=== PATIENT | male | born 1935 | race Two or more races ===

== ENCOUNTER 2018-02-26 12:26 | Inpatient (IN) | payer MEDICAID, OTHER ==
[~2018-02-26] VITALS: Ht 165.1 cm; Wt 65.8 kg
[2018-02-26 13:46] LABS: Basophils # (auto) 0 uL; Basophils % (auto) 0.4 % (0.0-2.0); Eosinophils # (auto) 0.3 uL; Eosinophils % (auto) 4.3 % (0.0-7.0); Hematocrit 40.3 % (41.0-53.0); Hemoglobin 13.3 g/dL (13.5-17.5); Lymphocytes # (auto) 0.7 uL; Lymphocytes % (auto) 9.6 % (10.0-50.0); Mean Corpuscular Hemoglobin 29.3 pg (28.0-32.0); Mean Corpuscular Volume 88.8 fL (80.0-100.0); Monocytes # (auto) 0.9 uL; Monocytes % (auto) 11.6 % (0.0-12.0); Neutrophils # (auto) 5.6 uL; Neutrophils % (auto) 74.1 % (37.0-80.0); Platelet Count (auto) 263 10^3/uL (140-450); Red Blood Cells 4.54 10^6/uL (4.5-5.90); Red Cell Distribution Width 16.4 % (11.8-14.3); White Blood Cell 7.5 10^3/uL (4.4-10.8)
[2018-02-26 14:06] LABS: Alanine Aminotransferase 17 U/L (16-61); Albumin 3.5 g/dL (3.4-5.0); Alkaline Phosphatase 87 U/L (45-117); Anion Gap 7 (5-15); Aspartate Aminotransferase 14 U/L (15-37); BUN/Creatinine Ratio 16.9; Bilirubin, Total 0.3 mg/dL (0.2-1.0); Blood Urea Nitrogen 15 mg/dL (7-18); Calcium 8.4 mg/dL (8.5-10.1); Carbon Dioxide 27 mmol/L (21-32); Chloride 102 mmol/L (98-107); GFR African American 105 mL/min; GFR Non-African American 87 mL/min; Glucose 120 mg/dL (74-106); Potassium 4.6 mmol/L (3.5-5.1); Sodium 136 mmol/L (136-145); Total Protein 8.3 g/dL (6.4-8.2)
[2018-02-26] MEDS ORDERED: ALBUTEROL SULF 2.5 MG/0.5ML(0.5%) NEB SOLN HHN ONE (14:15)
[2018-02-26] MEDS ORDERED: cefTRIAXone 1GM/10ml IVPUSH 10 ML IV ONE (14:15)
[2018-02-26] MEDS ORDERED: methylPREDNISolone SOD SUCC 125 MG/2 ML VL IV ONE (14:15)
[2018-02-26] MEDS ORDERED: IPRATROPIUM BROM 0.5 MG/2.5ML INH SOL HHN ONE (14:15)
[2018-02-26] MEDS ORDERED: ACETAMINOPHEN 500 MG TAB PO PRN (17:00)
[2018-02-26] MEDS ORDERED: ALBUTEROL SULF 2.5 MG/0.5ML(0.5%) NEB SOLN NEB PRN (17:00)
[2018-02-26] MEDS ORDERED: PROMETHAZINE HCL 25 MG/ML 1ML IV PRN (17:00)
[2018-02-26] MEDS ORDERED: TEMAZEPAM 15 MG CAP PO PRN (17:00)
[2018-02-26] MEDS ORDERED: NITROGLYCERIN 0.4 MG SL TAB SL PRN (17:00)
[2018-02-26] MEDS ORDERED: LORazepam 0.5 MG TAB PO PRN (17:00)
[2018-02-26] MEDS ORDERED: MORPHINE SULF INJ 2 MG/ML SYRINGE 1ML IV PRN ×2 (17:00)
[2018-02-26] MEDS ORDERED: LACTULOSE 20Gm/30ML SOLN PO PRN (17:00)
[2018-02-26] MEDS ORDERED: HYDROcodone-ACET 5/325MG TAB PO PRN (17:00)
[2018-02-26] MEDS: SODIUM CHLORIDE 0.9% 1,000 ML IV SCH (17:46)
[2018-02-26] MEDS ORDERED: methylPREDNISolone SOD SUCC 40 MG/ML VL IV SCH (18:00)
[2018-02-26 18:57] LABS: Urine Bacteria NONE SEEN /hpf (None Seen); Urine Blood TRACE /uL (Negative); Urine Specific Gravity 1.024 (1.001-1.035); Urine WBC 1 /hpf (0 - 3)
[2018-02-26] MEDS: ALBUTEROL SULF 2.5 MG/0.5ML(0.5%) NEB SOLN NEB SCH (18:57)
[2018-02-26] MEDS: IPRATROPIUM BROM 0.5 MG/2.5ML INH SOL NEB SCH (18:57)
[2018-02-26 19:00] VITALS: BP 148/70
[2018-02-26] MEDS ORDERED: IPRAAER6 IN (19:25)
[2018-02-26] MEDS ORDERED: THEO1CAP3 PO (19:25)
[2018-02-26] MEDS ORDERED: ALBUAER3 IN (19:25)
[2018-02-26] MEDS: DOXYCYCLINE 100MG/250ML 250 ML IV SCH (19:50)
[2018-02-26 20:28] VITALS: BP 148/70
[2018-02-26 22:00] VITALS: BP 133/78
[2018-02-26] MEDS: methylPREDNISolone SOD SUCC 40 MG/ML VL IV SCH (22:00)
[2018-02-27] MEDS: ALBUTEROL SULF 2.5 MG/0.5ML(0.5%) NEB SOLN NEB SCH ×5 (01:22→18:26)
[2018-02-27] MEDS: IPRATROPIUM BROM 0.5 MG/2.5ML INH SOL NEB SCH ×5 (01:22→18:26)
[2018-02-27] MEDS: DOXYCYCLINE 100MG/250ML 250 ML IV SCH ×2 (05:43→18:00)
[2018-02-27] MEDS: SODIUM CHLORIDE 0.9% 1,000 ML IV SCH ×2 (06:02→14:24)
[2018-02-27 08:14] VITALS: BP 114/68
[2018-02-27] MEDS: PANTOPRAZOLE 40 MG TAB PO SCH (11:33)
[2018-02-27] MEDS: methylPREDNISolone SOD SUCC 40 MG/ML VL IV SCH ×2 (11:33→21:32)
[2018-02-27] MEDS: ENOXAPARIN SOD 40 MG/0.4 ML SYRINGE SC SCH (11:33)
[2018-02-27 11:56] VITALS: BP 127/75
[2018-02-27 13:55] LABS: Cholesterol 145 mg/dL (< 200); HDL Cholesterol 66 mg/dL (40-59); LDL Cholesterol 70 mg/dL (< 100); Triglycerides 26 mg/dL (< 150)
[2018-02-27] MEDS ORDERED: IPRATROPIUM BROM 0.5 MG/2.5ML INH SOL NEB PRN (14:00)
[2018-02-27] MEDS ORDERED: guaiFENesin-DM 100/10mg/5ml SYR PO PRN (14:15)
[2018-02-27 16:46] VITALS: BP 121/71
[2018-02-27 21:49] VITALS: BP 133/76
[2018-02-28] MEDS: IPRATROPIUM BROM 0.5 MG/2.5ML INH SOL NEB SCH ×3 (00:26→18:16)
[2018-02-28] MEDS: ALBUTEROL SULF 2.5 MG/0.5ML(0.5%) NEB SOLN NEB SCH ×3 (00:26→18:16)
[2018-02-28] MEDS ORDERED: ACETYLCYSTEINE 10 %(100MG/ML) SOL 4ML NEB ONE (04:15)
[2018-02-28 04:54] VITALS: BP 133/83
[2018-02-28] MEDS: DOXYCYCLINE 100MG/250ML 250 ML IV SCH ×2 (05:35→17:08)
[2018-02-28 06:21] LABS: Basophils # (auto) 0 uL; Basophils % (auto) 0.1 % (0.0-2.0); Eosinophils # (auto) 0 uL; Hematocrit 38.5 % (41.0-53.0); Hemoglobin 12.7 g/dL (13.5-17.5); Lymphocytes # (auto) 0.5 uL; Lymphocytes % (auto) 3.6 % (10.0-50.0); Mean Corpuscular Hgb Conc. 32.9 g/dL (32.0-36.0); Mean Corpuscular Volume 88.2 fL (80.0-100.0); Monocytes # (auto) 0.4 uL; Monocytes % (auto) 3.5 % (0.0-12.0); Neutrophils % (auto) 92.8 % (37.0-80.0); Platelet Count (auto) 262 10^3/uL (140-450); Red Blood Cells 4.37 10^6/uL (4.5-5.90); Red Cell Distribution Width 16.1 % (11.8-14.3); White Blood Cell 12.9 10^3/uL (4.4-10.8)
[2018-02-28] MEDS: SODIUM CHLORIDE 0.9% 1,000 ML IV SCH (06:40)
[2018-02-28 06:42] LABS: Potassium 4.5 mmol/L (3.5-5.1)
[2018-02-28 06:51] LABS: Calcium 8.3 mg/dL (8.5-10.1); Magnesium 2.4 mg/dL (1.6-2.6)
[2018-02-28 08:00] VITALS: BP 143/86
[2018-02-28 08:30] VITALS: BP 143/86
[2018-02-28] MEDS: methylPREDNISolone SOD SUCC 40 MG/ML VL IV SCH ×2 (09:29→21:29)
[2018-02-28] MEDS: PANTOPRAZOLE 40 MG TAB PO SCH (09:29)
[2018-02-28] MEDS: ENOXAPARIN SOD 40 MG/0.4 ML SYRINGE SC SCH (09:30)
[2018-02-28] MEDS ORDERED: DEXTROSE (50%) 50ML SYRG IV PRN (11:00)
[2018-02-28] MEDS: ACCU-CHEK COMFORT CURVE STRIP VI SCH ×3 (11:30→21:28)
[2018-02-28] MEDS: InsuLIN REG 1unit/0.01ml Soln (100units/ml) SC SCH ×3 (11:30→21:28)
[2018-02-28 12:30] VITALS: BP 127/60
[2018-02-28 17:18] VITALS: BP 110/69
[2018-02-28 22:00] VITALS: BP 99/60
[2018-03-01] VITALS (7 sets, daily range): BP systolic 104–134; BP diastolic 60–80
[2018-03-01] MEDS: ALBUTEROL SULF 2.5 MG/0.5ML(0.5%) NEB SOLN NEB SCH ×4 (01:24→19:11)
[2018-03-01] MEDS: IPRATROPIUM BROM 0.5 MG/2.5ML INH SOL NEB SCH ×4 (01:24→19:10)
[2018-03-01] MEDS: DOXYCYCLINE 100MG/250ML 250 ML IV SCH (05:31)
[2018-03-01] MEDS: ACCU-CHEK COMFORT CURVE STRIP VI SCH ×4 (05:44→21:08)
[2018-03-01] MEDS: InsuLIN REG 1unit/0.01ml Soln (100units/ml) SC SCH ×4 (05:44→21:13)
[2018-03-01] MEDS ORDERED: LEVOFLOXACIN 500MG 100 ML IV ONE (10:15)
[2018-03-01] MEDS: PANTOPRAZOLE 40 MG TAB PO SCH (10:26)
[2018-03-01] MEDS: methylPREDNISolone SOD SUCC 40 MG/ML VL IV SCH ×2 (10:26→21:08)
[2018-03-01] MEDS: ENOXAPARIN SOD 40 MG/0.4 ML SYRINGE SC SCH (10:26)
[2018-03-01] MEDS ORDERED: LEVOTHYROXINE SODIUM 25 MCG TAB PO ONE (10:45)
[2018-03-01 11:17] LABS: Basophils # (auto) 0 uL; Basophils % (auto) 0.1 % (0.0-2.0); Eosinophils # (auto) 0 uL; Hematocrit 38.5 % (41.0-53.0); Hemoglobin 12.7 g/dL (13.5-17.5); Lymphocytes # (auto) 0.4 uL; Lymphocytes % (auto) 3.6 % (10.0-50.0); Mean Corpuscular Hgb Conc. 32.9 g/dL (32.0-36.0); Mean Corpuscular Volume 88.1 fL (80.0-100.0); Monocytes # (auto) 1.1 uL; Monocytes % (auto) 10.4 % (0.0-12.0); Neutrophils # (auto) 9.2 uL; Neutrophils % (auto) 85.9 % (37.0-80.0); Platelet Count (auto) 257 10^3/uL (140-450); Red Blood Cells 4.37 10^6/uL (4.5-5.90); Red Cell Distribution Width 16.1 % (11.8-14.3); White Blood Cell 10.8 10^3/uL (4.4-10.8)
[2018-03-02] MEDS: ALBUTEROL SULF 2.5 MG/0.5ML(0.5%) NEB SOLN NEB SCH ×4 (00:08→18:31)
[2018-03-02] MEDS: IPRATROPIUM BROM 0.5 MG/2.5ML INH SOL NEB SCH ×4 (00:08→18:31)
[2018-03-02 05:00] VITALS: BP 124/76
[2018-03-02] MEDS: ACCU-CHEK COMFORT CURVE STRIP VI SCH ×4 (06:22→21:59)
[2018-03-02] MEDS: LEVOTHYROXINE SODIUM 25 MCG TAB PO SCH (06:22)
[2018-03-02] MEDS: InsuLIN REG 1unit/0.01ml Soln (100units/ml) SC SCH ×4 (06:27→22:05)
[2018-03-02 09:00] VITALS: BP 134/64
[2018-03-02] MEDS: PANTOPRAZOLE 40 MG TAB PO SCH (09:58)
[2018-03-02] MEDS: LEVOFLOXACIN 500MG 100 ML IV SCH (09:58)
[2018-03-02] MEDS: methylPREDNISolone SOD SUCC 40 MG/ML VL IV SCH ×2 (09:58→21:58)
[2018-03-02] MEDS: ENOXAPARIN SOD 40 MG/0.4 ML SYRINGE SC SCH (09:58)
[2018-03-02 13:37] VITALS: BP 122/77
[2018-03-02 17:00] VITALS: BP 137/76
[2018-03-02 22:00] VITALS: BP 116/70
[2018-03-02] MEDS ORDERED: TIOTCAP IN (22:25)
[2018-03-03] MEDS: IPRATROPIUM BROM 0.5 MG/2.5ML INH SOL NEB SCH ×3 (00:12→11:45)
[2018-03-03] MEDS: ALBUTEROL SULF 2.5 MG/0.5ML(0.5%) NEB SOLN NEB SCH ×3 (00:12→11:44)
[2018-03-03 05:00] VITALS: BP 104/39
[2018-03-03 05:52] VITALS: BP 122/76
[2018-03-03] MEDS: InsuLIN REG 1unit/0.01ml Soln (100units/ml) SC SCH ×2 (06:27→11:30)
[2018-03-03] MEDS: ACCU-CHEK COMFORT CURVE STRIP VI SCH ×2 (06:27→12:14)
[2018-03-03] MEDS: LEVOTHYROXINE SODIUM 25 MCG TAB PO SCH (06:28)
[2018-03-03] MEDS: ENOXAPARIN SOD 40 MG/0.4 ML SYRINGE SC SCH (08:46)
[2018-03-03] MEDS: PANTOPRAZOLE 40 MG TAB PO SCH (08:46)
[2018-03-03] MEDS: methylPREDNISolone SOD SUCC 40 MG/ML VL IV SCH (08:46)
[2018-03-03] MEDS: LEVOFLOXACIN 500MG 100 ML IV SCH (08:47)
[2018-03-03 08:50] VITALS: BP 117/67
[2018-03-03] MEDS ORDERED: SACC250C PO (10:29)
[2018-03-03] MEDS ORDERED: ALBUAER3 IN (10:29)
[2018-03-03] MEDS ORDERED: LEVO500T21 PO (10:29)
[2018-03-03] MEDS ORDERED: PANT40TA2 PO (10:29)
== END 2018-03-03 12:20 | disposition home or self-care (01) | DRG 140 ==
LOC: ER 12:28 → TELE 12:29 → TELE-EAST 18:43
PROVIDERS: ADMIT Internal Medicine; ATTEND Internal Medicine
DX: J44.1 Chronic obstructive pulmonary disease with (acute) exacerbation (principal); J96.20 Acute and chronic respiratory failure, unspecified whether with hypoxia or hypercapnia; J69.0 Pneumonitis due to inhalation of food and vomit; J45.901 Unspecified asthma with (acute) exacerbation; J90 Pleural effusion, not elsewhere classified; T38.0X5A Adverse effect of glucocorticoids and synthetic analogues, initial encounter; R35.1 Nocturia; I10 Essential (primary) hypertension; F17.200 Nicotine dependence, unspecified, uncomplicated; Z82.49 Family history of ischemic heart disease and other diseases of the circulatory system; Y92.89 Other specified places as the place of occurrence of the external cause
CPT/HCPCS: 36415; 71046; 71250; 80048; 80053; 80061; 81001; 82962; 83605; 83735; 83880; 84132; 84443; 84484; 85025; 87040; 87070; 87077; 87186; 87205; 93005; 94640; 94761; 96361; 96374; 96375; 96376; J0696; J1815; J1956; J3490

== ENCOUNTER 2018-03-05 17:33 | Inpatient (IN) | payer MEDICAID ==
[~2018-03-05] VITALS: Ht 170.2 cm; Wt 64.5 kg
[~2018-03-05 17:33] MED LIST: ALBUAER3 IN; IPRAAER6 IN; LEVO500T21 PO; PANT40TA2 PO; SACC250C PO; THEO1CAP3 PO; TIOTCAP IN
[2018-03-05] MEDS ORDERED: IPRATROPIUM BROM 0.5 MG/2.5ML INH SOL NEB ONE ×2 (18:00→18:15)
[2018-03-05] MEDS ORDERED: ALBUTEROL SULF 2.5 MG/0.5ML(0.5%) NEB SOLN NEB ONE ×2 (18:00→18:15)
[2018-03-05] MEDS ORDERED: methylPREDNISolone SOD SUCC 125 MG/2 ML VL ONE (18:06)
[2018-03-05] MEDS ORDERED: IPRATROPIUM BROM 0.5 MG/2.5ML INH SOL ONE (18:10)
[2018-03-05] MEDS ORDERED: ALBUTEROL SULF 2.5 MG/0.5ML(0.5%) NEB SOLN ONE (18:10)
[2018-03-05] MEDS ORDERED: methylPREDNISolone SOD SUCC 125 MG/2 ML VL IV ONE (18:15)
[2018-03-05 19:01] LABS: Basophils # (auto) 0 uL; Eosinophils # (auto) 0 uL; Hematocrit 44.1 % (41.0-53.0); Hemoglobin 14.4 g/dL (13.5-17.5); Lymphocytes # (auto) 0.7 uL; Lymphocytes % (auto) 5.9 % (10.0-50.0); Mean Corpuscular Hemoglobin 28.8 pg (28.0-32.0); Mean Corpuscular Hgb Conc. 32.6 g/dL (32.0-36.0); Mean Corpuscular Volume 88.4 fL (80.0-100.0); Monocytes # (auto) 0.5 uL; Monocytes % (auto) 4.6 % (0.0-12.0); Neutrophils # (auto) 10.7 uL; Neutrophils % (auto) 89.5 % (37.0-80.0); Nucleated Red Blood Cells % 0.1 %; Platelet Count (auto) 314 10^3/uL (140-450); Red Blood Cells 4.99 10^6/uL (4.5-5.90); Red Cell Distribution Width 16.3 % (11.8-14.3); White Blood Cell 11.9 10^3/uL (4.4-10.8)
[2018-03-05 19:26] LABS: Alanine Aminotransferase 43 U/L (16-61); Albumin 3.5 g/dL (3.4-5.0); Alkaline Phosphatase 84 U/L (45-117); Anion Gap 10 (5-15); Aspartate Aminotransferase 29 U/L (15-37); BUN/Creatinine Ratio 19.8; Bilirubin, Total 0.3 mg/dL (0.2-1.0); Blood Urea Nitrogen 22 mg/dL (7-18); Carbon Dioxide 25 mmol/L (21-32); Chloride 98 mmol/L (98-107); GFR African American 82 mL/min; GFR Non-African American 67 mL/min; Glucose 162 mg/dL (74-106); Magnesium 2.8 mg/dL (1.6-2.6); Potassium 4.4 mmol/L (3.5-5.1); Sodium 133 mmol/L (136-145); Total Protein 7.7 g/dL (6.4-8.2)
[2018-03-05] MEDS ORDERED: ONDANSETRON HCL 4 MG/2 ML VIAL IV PRN (21:15)
[2018-03-05] MEDS ORDERED: ACETAMINOPHEN 325 MG TAB PO PRN (21:15)
[2018-03-05 22:37] VITALS: BP 128/76
[2018-03-05] MEDS: methylPREDNISolone SOD SUCC 125 MG/2 ML VL IV SCH (22:38)
[2018-03-05] MEDS: FAMOTIDINE 20 MG TAB PO SCH (22:38)
[2018-03-06] VITALS (7 sets, daily range): BP systolic 102–140; BP diastolic 66–88
[2018-03-06] MEDS: TEMAZEPAM 15 MG CAP PO PRN ×2 (01:45→21:47)
[2018-03-06 07:34] LABS: Hematocrit 39.1 % (41.0-53.0); Hemoglobin 12.7 g/dL (13.5-17.5); Mean Corpuscular Hemoglobin 28.4 pg (28.0-32.0); Mean Corpuscular Hgb Conc. 32.4 g/dL (32.0-36.0); Mean Corpuscular Volume 87.5 fL (80.0-100.0); Platelet Count (auto) 241 10^3/uL (140-450); Red Blood Cells 4.47 10^6/uL (4.5-5.90); Red Cell Distribution Width 16.1 % (11.8-14.3); White Blood Cell 11.7 10^3/uL (4.4-10.8)
[2018-03-06 07:56] LABS: Basophils % (manual) 0 (0.0-2.0); Blast Cells 0; Eosinophils % (manual) 0 (0-7); Metamyelocytes % 0; Promyelocytes % 0; Reactive Lymphocytes 0
[2018-03-06 07:58] LABS: Albumin 2.9 g/dL (3.4-5.0); BUN/Creatinine Ratio 22.5; Bilirubin, Total 0.3 mg/dL (0.2-1.0); Calcium 7.6 mg/dL (8.5-10.1); Potassium 4.3 mmol/L (3.5-5.1); Total Protein 6.3 g/dL (6.4-8.2)
[2018-03-06] MEDS: FAMOTIDINE 20 MG TAB PO SCH (09:59)
[2018-03-06] MEDS: methylPREDNISolone SOD SUCC 125 MG/2 ML VL IV SCH ×2 (09:59→21:47)
[2018-03-06] MEDS: ENOXAPARIN SOD 40 MG/0.4 ML SYRINGE SC SCH (09:59)
[2018-03-06 12:02] LABS: Band Neutrophils % (manual) 3; Lymphocytes % (manual) 3 (10.0-50.0); Monocytes % (manual) 4 (0-12); Myelocytes % 1
[2018-03-06] MEDS: IPRATROPIUM BROM 0.5 MG/2.5ML INH SOL NEB PRN (12:43)
[2018-03-06] MEDS: ALBUTEROL SULF 2.5 MG/0.5ML(0.5%) NEB SOLN NEB PRN (12:43)
[2018-03-06] MEDS: guaiFENesin-DM 100/10mg/5ml SYR PO PRN (17:59)
[2018-03-06] MEDS: Ensure Enlive Strawberry 8oz Bottle PO SCH (18:00)
[2018-03-06] MEDS: DOCUSATE SOD 100 MG CAP PO PRN (21:47)
[2018-03-07 05:02] VITALS: BP 132/74
[2018-03-07 05:41] LABS: Basophils # (auto) 0 uL; Basophils % (auto) 0.1 % (0.0-2.0); Eosinophils # (auto) 0 uL; Hematocrit 39.4 % (41.0-53.0); Hemoglobin 12.9 g/dL (13.5-17.5); Lymphocytes # (auto) 0.4 uL; Lymphocytes % (auto) 2.7 % (10.0-50.0); Mean Corpuscular Hemoglobin 28.8 pg (28.0-32.0); Mean Corpuscular Hgb Conc. 32.8 g/dL (32.0-36.0); Mean Corpuscular Volume 87.8 fL (80.0-100.0); Monocytes # (auto) 0.5 uL; Monocytes % (auto) 3.5 % (0.0-12.0); Neutrophils # (auto) 12.8 uL; Neutrophils % (auto) 93.7 % (37.0-80.0); Platelet Count (auto) 237 10^3/uL (140-450); Red Blood Cells 4.49 10^6/uL (4.5-5.90); Red Cell Distribution Width 16.3 % (11.8-14.3); White Blood Cell 13.7 10^3/uL (4.4-10.8)
[2018-03-07 05:58] LABS: BUN/Creatinine Ratio 30.8; Calcium 7.6 mg/dL (8.5-10.1); Potassium 4.2 mmol/L (3.5-5.1)
[2018-03-07] MEDS: IPRATROPIUM BROM 0.5 MG/2.5ML INH SOL NEB PRN ×2 (06:22→10:10)
[2018-03-07] MEDS: ALBUTEROL SULF 2.5 MG/0.5ML(0.5%) NEB SOLN NEB PRN ×2 (06:22→10:11)
[2018-03-07 08:00] VITALS: BP 119/66
[2018-03-07 09:34] VITALS: BP 119/66
[2018-03-07] MEDS: Ensure Enlive Strawberry 8oz Bottle PO SCH ×3 (10:38→18:30)
[2018-03-07] MEDS: FAMOTIDINE 20 MG TAB PO SCH (10:40)
[2018-03-07] MEDS: methylPREDNISolone SOD SUCC 125 MG/2 ML VL IV SCH ×2 (10:41→21:09)
[2018-03-07] MEDS: ENOXAPARIN SOD 40 MG/0.4 ML SYRINGE SC SCH (10:41)
[2018-03-07] MEDS: guaiFENesin-DM 100/10mg/5ml SYR PO PRN (10:48)
[2018-03-07] MEDS ORDERED: LEVOFLOXACIN 500MG 100 ML IV ONE (11:30)
[2018-03-07] MEDS ORDERED: PANTOPRAZOLE 40 MG TAB PO ONE (11:30)
[2018-03-07] MEDS ORDERED: MEGESTROL ACET 400MG/10ML ORAL SUSP PO ONE (11:30)
[2018-03-07 13:12] VITALS: BP 112/66
[2018-03-07 17:15] VITALS: BP 115/87
[2018-03-07] MEDS: TEMAZEPAM 15 MG CAP PO PRN (21:09)
[2018-03-07] MEDS: MEGESTROL ACET 400MG/10ML ORAL SUSP GT SCH (21:10)
[2018-03-07 21:22] VITALS: BP 125/72
[2018-03-08] VITALS (7 sets, daily range): BP systolic 116–129; BP diastolic 70–81
[2018-03-08 06:32] LABS: Hematocrit 38.3 % (41.0-53.0); Hemoglobin 12.6 g/dL (13.5-17.5); Mean Corpuscular Hemoglobin 28.9 pg (28.0-32.0); Mean Corpuscular Hgb Conc. 32.8 g/dL (32.0-36.0); Mean Corpuscular Volume 88.3 fL (80.0-100.0); Platelet Count (auto) 208 10^3/uL (140-450); Red Blood Cells 4.34 10^6/uL (4.5-5.90); Red Cell Distribution Width 16.1 % (11.8-14.3); White Blood Cell 15.1 10^3/uL (4.4-10.8)
[2018-03-08 06:41] LABS: Band Neutrophils % (manual) 0; Basophils % (manual) 0 (0.0-2.0); Blast Cells 0; Eosinophils % (manual) 0 (0-7); Metamyelocytes % 0; Myelocytes % 0; Promyelocytes % 0; Reactive Lymphocytes 0
[2018-03-08 06:48] LABS: BUN/Creatinine Ratio 34.3; Calcium 7.6 mg/dL (8.5-10.1); Potassium 4.7 mmol/L (3.5-5.1)
[2018-03-08] MEDS: Ensure Enlive Strawberry 8oz Bottle PO SCH ×3 (08:00→18:00)
[2018-03-08] MEDS: HYDROcodone-ACET 5/325MG TAB PO PRN ×2 (09:10→16:20)
[2018-03-08] MEDS ORDERED: LEVOFLOXACIN 500MG 100 ML IV SCH (10:00)
[2018-03-08] MEDS: methylPREDNISolone SOD SUCC 125 MG/2 ML VL IV SCH ×2 (11:20→21:43)
[2018-03-08] MEDS: MEGESTROL ACET 400MG/10ML ORAL SUSP GT SCH ×2 (11:20→21:43)
[2018-03-08] MEDS: PANTOPRAZOLE 40 MG TAB PO SCH (11:20)
[2018-03-08] MEDS: ENOXAPARIN SOD 40 MG/0.4 ML SYRINGE SC SCH (11:21)
[2018-03-08] MEDS ORDERED: AZITHROMYCIN 500MG/ 250ML 250 ML IV ONE (11:45)
[2018-03-08] MEDS ORDERED: cefTRIAXone 1GM/10ml IVPUSH 10 ML IV ONE (11:45)
[2018-03-08 11:59] LABS: Lymphocytes % (manual) 3 (10.0-50.0); Monocytes % (manual) 5 (0-12)
[2018-03-08] MEDS: ALBUTEROL SULF 2.5 MG/0.5ML(0.5%) NEB SOLN NEB SCH ×2 (14:15→19:16)
[2018-03-08] MEDS: IPRATROPIUM BROM 0.5 MG/2.5ML INH SOL NEB SCH ×2 (14:15→19:16)
[2018-03-08] MEDS: BUDESONIDE (INHALATION) 0.5 MG/2 ML NEB NEB SCH (19:16)
[2018-03-09 05:01] VITALS: BP 135/83
[2018-03-09 05:49] LABS: Hematocrit 40.4 % (41.0-53.0); Hemoglobin 13.2 g/dL (13.5-17.5); Mean Corpuscular Hemoglobin 29.1 pg (28.0-32.0); Mean Corpuscular Hgb Conc. 32.8 g/dL (32.0-36.0); Mean Corpuscular Volume 88.6 fL (80.0-100.0); Platelet Count (auto) 208 10^3/uL (140-450); Red Blood Cells 4.55 10^6/uL (4.5-5.90); Red Cell Distribution Width 16.3 % (11.8-14.3); White Blood Cell 14.4 10^3/uL (4.4-10.8)
[2018-03-09 06:08] LABS: Calcium 7.9 mg/dL (8.5-10.1); Potassium 4.7 mmol/L (3.5-5.1)
[2018-03-09 06:10] LABS: BUN/Creatinine Ratio 32.9
[2018-03-09] MEDS: IPRATROPIUM BROM 0.5 MG/2.5ML INH SOL NEB SCH ×4 (06:51→18:19)
[2018-03-09] MEDS: BUDESONIDE (INHALATION) 0.5 MG/2 ML NEB NEB SCH ×2 (06:51→18:19)
[2018-03-09] MEDS: ALBUTEROL SULF 2.5 MG/0.5ML(0.5%) NEB SOLN NEB SCH ×4 (06:52→18:19)
[2018-03-09 07:32] LABS: Basophils % (manual) 0 (0.0-2.0); Blast Cells 0; Eosinophils % (manual) 0 (0-7); Promyelocytes % 0; Reactive Lymphocytes 0
[2018-03-09] MEDS: Ensure Enlive Strawberry 8oz Bottle PO SCH ×3 (08:00→18:00)
[2018-03-09 08:56] LABS: Band Neutrophils % (manual) 1; Lymphocytes % (manual) 1 (10.0-50.0); Metamyelocytes % 3; Monocytes % (manual) 3 (0-12); Myelocytes % 1
[2018-03-09] MEDS: cefTRIAXone 1GM/10ml IVPUSH 10 ML IV SCH (09:00)
[2018-03-09 09:12] VITALS: BP 114/72
[2018-03-09] MEDS: HYDROcodone-ACET 5/325MG TAB PO PRN ×2 (09:15→16:12)
[2018-03-09] MEDS: PANTOPRAZOLE 40 MG TAB PO SCH (10:05)
[2018-03-09] MEDS: MEGESTROL ACET 400MG/10ML ORAL SUSP GT SCH ×2 (10:05→21:58)
[2018-03-09] MEDS: methylPREDNISolone SOD SUCC 125 MG/2 ML VL IV SCH ×2 (10:05→21:59)
[2018-03-09] MEDS: AZITHROMYCIN 500MG/ 250ML 250 ML IV SCH (10:05)
[2018-03-09] MEDS: ENOXAPARIN SOD 40 MG/0.4 ML SYRINGE SC SCH (10:06)
[2018-03-09 11:49] LABS: Hematocrit 40.5 % (41.0-53.0); Hemoglobin 13.5 g/dL (13.5-17.5); Mean Corpuscular Hemoglobin 29.4 pg (28.0-32.0); Mean Corpuscular Hgb Conc. 33.5 g/dL (32.0-36.0); Platelet Count (auto) 204 10^3/uL (140-450); Red Cell Distribution Width 16.7 % (11.8-14.3); White Blood Cell 16.7 10^3/uL (4.4-10.8)
[2018-03-09 11:56] LABS: Band Neutrophils % (manual) 0; Basophils % (manual) 0 (0.0-2.0); Blast Cells 0; Eosinophils % (manual) 0 (0-7); Myelocytes % 0; Promyelocytes % 0; Reactive Lymphocytes 0
[2018-03-09 12:33] VITALS: BP 119/65
[2018-03-09 13:09] LABS: Lymphocytes % (manual) 1 (10.0-50.0); Metamyelocytes % 1; Monocytes % (manual) 5 (0-12)
[2018-03-09 16:43] VITALS: BP 119/73
[2018-03-09 20:07] VITALS: BP 119/73
[2018-03-09] MEDS ORDERED: TEMAZEPAM 15 MG CAP PO ONE (21:00)
[2018-03-09 21:33] VITALS: BP 106/69
[2018-03-10 05:16] VITALS: BP 119/77
[2018-03-10] MEDS: BUDESONIDE (INHALATION) 0.5 MG/2 ML NEB NEB SCH ×2 (06:17→18:48)
[2018-03-10] MEDS: ALBUTEROL SULF 2.5 MG/0.5ML(0.5%) NEB SOLN NEB SCH ×4 (06:17→18:48)
[2018-03-10] MEDS: IPRATROPIUM BROM 0.5 MG/2.5ML INH SOL NEB SCH ×4 (06:17→18:48)
[2018-03-10] MEDS: Ensure Enlive Strawberry 8oz Bottle PO SCH ×2 (08:00→12:49)
[2018-03-10 08:52] VITALS: BP 121/74
[2018-03-10] MEDS: MEGESTROL ACET 400MG/10ML ORAL SUSP GT SCH ×2 (10:09→23:49)
[2018-03-10] MEDS: PANTOPRAZOLE 40 MG TAB PO SCH (10:09)
[2018-03-10] MEDS: cefTRIAXone 1GM/10ml IVPUSH 10 ML IV SCH (10:09)
[2018-03-10] MEDS: methylPREDNISolone SOD SUCC 125 MG/2 ML VL IV SCH ×2 (10:09→23:49)
[2018-03-10] MEDS: ENOXAPARIN SOD 40 MG/0.4 ML SYRINGE SC SCH (10:09)
[2018-03-10] MEDS: AZITHROMYCIN 500MG/ 250ML 250 ML IV SCH (10:10)
[2018-03-10 14:29] VITALS: BP 121/63
[2018-03-10 16:44] VITALS: BP 133/76
[2018-03-10] MEDS: DOCUSATE SOD 100 MG CAP PO PRN (17:04)
[2018-03-10 21:39] VITALS: BP 122/75
[2018-03-11 05:39] VITALS: BP 127/75
[2018-03-11] MEDS: ALBUTEROL SULF 2.5 MG/0.5ML(0.5%) NEB SOLN NEB SCH ×5 (06:22→23:10)
[2018-03-11] MEDS: IPRATROPIUM BROM 0.5 MG/2.5ML INH SOL NEB SCH ×5 (06:22→23:09)
[2018-03-11] MEDS: Ensure Enlive Strawberry 8oz Bottle PO SCH ×3 (08:00→18:39)
[2018-03-11 08:45] VITALS: BP 118/71
[2018-03-11] MEDS: PANTOPRAZOLE 40 MG TAB PO SCH (09:15)
[2018-03-11] MEDS: MEGESTROL ACET 400MG/10ML ORAL SUSP GT SCH ×2 (09:15→23:10)
[2018-03-11] MEDS: cefTRIAXone 1GM/10ml IVPUSH 10 ML IV SCH (09:16)
[2018-03-11] MEDS: methylPREDNISolone SOD SUCC 125 MG/2 ML VL IV SCH (09:16)
[2018-03-11] MEDS: AZITHROMYCIN 500MG/ 250ML 250 ML IV SCH (09:17)
[2018-03-11] MEDS: ENOXAPARIN SOD 40 MG/0.4 ML SYRINGE SC SCH (09:17)
[2018-03-11] MEDS: BUDESONIDE (INHALATION) 0.5 MG/2 ML NEB NEB SCH ×2 (09:50→23:09)
[2018-03-11] MEDS ORDERED: HYDROcodone-ACET 5/325MG TAB PO PRN (11:30)
[2018-03-11] MEDS ORDERED: PROMETHAZINE W/CODEINE 5 ML ORAL SYRUP PO PRN (11:30)
[2018-03-11 12:12] VITALS: BP 118/72
[2018-03-11 17:12] VITALS: BP 119/71
[2018-03-11] MEDS ORDERED: ALBUTEROL SULF 2.5 MG/0.5ML(0.5%) NEB SOLN NEB SCH (18:00)
[2018-03-11 19:45] VITALS: BP 119/71
[2018-03-11] MEDS ORDERED: TEMAZEPAM 15 MG CAP PO PRN (21:15)
[2018-03-11 22:00] VITALS: BP 125/64
[2018-03-11] MEDS: methylPREDNISolone SOD SUCC 40 MG/ML VL IV SCH (23:15)
[2018-03-12 05:00] VITALS: BP 112/74
[2018-03-12 06:32] LABS: Basophils # (auto) 0 uL; Basophils % (auto) 0.2 % (0.0-2.0); Calcium 7.7 mg/dL (8.5-10.1); Eosinophils # (auto) 0 uL; Hematocrit 40.1 % (41.0-53.0); Lymphocytes # (auto) 0.2 uL; Lymphocytes % (auto) 1.4 % (10.0-50.0); Mean Corpuscular Hemoglobin 28.3 pg (28.0-32.0); Mean Corpuscular Hgb Conc. 32.3 g/dL (32.0-36.0); Mean Corpuscular Volume 87.4 fL (80.0-100.0); Monocytes # (auto) 0.6 uL; Monocytes % (auto) 4.2 % (0.0-12.0); Neutrophils # (auto) 12.8 uL; Neutrophils % (auto) 94.2 % (37.0-80.0); Nucleated Red Blood Cells % 0.1 %; Platelet Count (auto) 186 10^3/uL (140-450); Potassium 4.9 mmol/L (3.5-5.1); Red Blood Cells 4.58 10^6/uL (4.5-5.90); Red Cell Distribution Width 16.6 % (11.8-14.3); White Blood Cell 13.6 10^3/uL (4.4-10.8)
[2018-03-12] MEDS: BUDESONIDE (INHALATION) 0.5 MG/2 ML NEB NEB SCH ×2 (06:39→18:58)
[2018-03-12] MEDS: IPRATROPIUM BROM 0.5 MG/2.5ML INH SOL NEB SCH ×3 (06:39→18:58)
[2018-03-12] MEDS: ALBUTEROL SULF 2.5 MG/0.5ML(0.5%) NEB SOLN NEB SCH ×3 (06:40→18:58)
[2018-03-12] MEDS: Ensure Enlive Strawberry 8oz Bottle PO SCH ×3 (08:00→18:36)
[2018-03-12 09:31] VITALS: BP 112/64
[2018-03-12] MEDS: MEGESTROL ACET 400MG/10ML ORAL SUSP GT SCH ×2 (09:31→23:06)
[2018-03-12] MEDS: cefTRIAXone 1GM/10ml IVPUSH 10 ML IV SCH (09:31)
[2018-03-12] MEDS: PANTOPRAZOLE 40 MG TAB PO SCH (09:31)
[2018-03-12] MEDS: AZITHROMYCIN 500MG/ 250ML 250 ML IV SCH (09:32)
[2018-03-12] MEDS: ENOXAPARIN SOD 40 MG/0.4 ML SYRINGE SC SCH (09:32)
[2018-03-12] MEDS: methylPREDNISolone SOD SUCC 40 MG/ML VL IV SCH ×2 (09:32→23:07)
[2018-03-12] MEDS ORDERED: FLUCONAZOLE 200MG/100ML 100 ML IV ONE (11:00)
[2018-03-12] MEDS ORDERED: ALBUTEROL SULF 2.5 MG/0.5ML(0.5%) NEB SOLN NEB PRN (11:15)
[2018-03-12] MEDS ORDERED: IPRATROPIUM BROM 0.5 MG/2.5ML INH SOL NEB PRN (11:15)
[2018-03-12] MEDS: PIPERACILLIN-TAZOB 3.375GM 100 ML IV SCH ×2 (12:00→18:46)
[2018-03-12 14:19] VITALS: BP 109/67
[2018-03-12 15:36] LABS: INR 0.94 (0.9-1.15); Prothrombin Time 10.1 sec (9.27-12.13)
[2018-03-12 17:00] VITALS: BP 104/62
[2018-03-12 22:00] VITALS: BP 117/63
[2018-03-13] MEDS: ALBUTEROL SULF 2.5 MG/0.5ML(0.5%) NEB SOLN NEB SCH ×5 (01:20→23:10)
[2018-03-13] MEDS: IPRATROPIUM BROM 0.5 MG/2.5ML INH SOL NEB SCH ×5 (01:20→23:10)
[2018-03-13 05:00] VITALS: BP 130/73
[2018-03-13] MEDS: BUDESONIDE (INHALATION) 0.5 MG/2 ML NEB NEB SCH ×2 (06:30→23:10)
[2018-03-13 06:40] LABS: Hemoglobin 12.6 g/dL (13.5-17.5); Mean Corpuscular Hemoglobin 28.3 pg (28.0-32.0); Mean Corpuscular Hgb Conc. 32.2 g/dL (32.0-36.0); Mean Corpuscular Volume 87.9 fL (80.0-100.0); Platelet Count (auto) 187 10^3/uL (140-450); Red Blood Cells 4.44 10^6/uL (4.5-5.90); Red Cell Distribution Width 16.6 % (11.8-14.3); White Blood Cell 11.7 10^3/uL (4.4-10.8)
[2018-03-13 06:43] LABS: Basophils % (manual) 0 (0.0-2.0); Blast Cells 0; Eosinophils % (manual) 0 (0-7); Myelocytes % 0; Promyelocytes % 0; Reactive Lymphocytes 0
[2018-03-13 06:59] LABS: BUN/Creatinine Ratio 37.3; Calcium 7.7 mg/dL (8.5-10.1); Potassium 4.8 mmol/L (3.5-5.1)
[2018-03-13] MEDS: PIPERACILLIN-TAZOB 3.375GM 100 ML IV SCH ×4 (07:01→17:33)
[2018-03-13] MEDS: Ensure Enlive Strawberry 8oz Bottle PO SCH ×3 (08:00→18:00)
[2018-03-13 08:12] LABS: Band Neutrophils % (manual) 5; Lymphocytes % (manual) 5 (10.0-50.0); Metamyelocytes % 2; Monocytes % (manual) 10 (0-12)
[2018-03-13 08:30] VITALS: BP 113/61
[2018-03-13] MEDS: ENOXAPARIN SOD 40 MG/0.4 ML SYRINGE SC SCH (10:00)
[2018-03-13] MEDS: FLUCONAZOLE 200MG/100ML 100 ML IV SCH (10:08)
[2018-03-13] MEDS: methylPREDNISolone SOD SUCC 40 MG/ML VL IV SCH ×2 (10:08→21:23)
[2018-03-13] MEDS ORDERED: HYDROmorphone HCL 2 MG/ML VL ONE (11:03)
[2018-03-13] MEDS ORDERED: EPINEPHrine HCL 1 MG/1 ML AMP ONE (11:03)
[2018-03-13] MEDS ORDERED: LIDOCAINE 2% (LOCAL ANESTH.) PF 5ml SDV ONE (11:03)
[2018-03-13] MEDS ORDERED: SODIUM CHLORIDE LOCK 0 ML ONE (11:03)
[2018-03-13] MEDS ORDERED: MIDAZOLAM HCL 5 MG/ML-1ML VIAL ONE (11:04)
[2018-03-13] MEDS ORDERED: GLYCOPYRROLATE 0.2 MG/ML 1ML VIAL ONE (11:04)
[2018-03-13] MEDS ORDERED: LIDOCAINE HCL 2% TOP JELLY 5ML TOP ONE (11:04)
[2018-03-13 12:30] VITALS: BP 112/70
[2018-03-13 16:45] VITALS: BP 121/69
[2018-03-13] MEDS: PANTOPRAZOLE 40 MG TAB PO SCH (17:32)
[2018-03-13] MEDS: MEGESTROL ACET 400MG/10ML ORAL SUSP GT SCH ×2 (17:32→21:23)
[2018-03-13 21:33] LABS: Urine Bacteria NONE SEEN /hpf (None Seen); Urine Blood Negative /uL (Negative); Urine Specific Gravity 1.017 (1.001-1.035); Urine WBC <1 /hpf (0 - 3)
[2018-03-13 22:00] VITALS: BP 109/48
[2018-03-14] MEDS: PIPERACILLIN-TAZOB 3.375GM 100 ML IV SCH ×5 (00:48→23:28)
[2018-03-14 05:18] VITALS: BP 114/58
[2018-03-14 06:26] LABS: Hematocrit 37.7 % (41.0-53.0); Hemoglobin 12.6 g/dL (13.5-17.5); Mean Corpuscular Hemoglobin 29.4 pg (28.0-32.0); Mean Corpuscular Hgb Conc. 33.6 g/dL (32.0-36.0); Mean Corpuscular Volume 87.5 fL (80.0-100.0); Platelet Count (auto) 201 10^3/uL (140-450); Red Cell Distribution Width 16.7 % (11.8-14.3); White Blood Cell 10.6 10^3/uL (4.4-10.8)
[2018-03-14 06:33] LABS: BUN/Creatinine Ratio 32.1; Calcium 7.6 mg/dL (8.5-10.1); Potassium 4.7 mmol/L (3.5-5.1)
[2018-03-14 06:46] LABS: Basophils % (manual) 0 (0.0-2.0); Blast Cells 0; Eosinophils % (manual) 0 (0-7); Metamyelocytes % 0; Myelocytes % 0; Promyelocytes % 0; Reactive Lymphocytes 0
[2018-03-14] MEDS: BUDESONIDE (INHALATION) 0.5 MG/2 ML NEB NEB SCH ×2 (07:19→18:25)
[2018-03-14] MEDS: IPRATROPIUM BROM 0.5 MG/2.5ML INH SOL NEB SCH ×3 (07:19→18:25)
[2018-03-14] MEDS: ALBUTEROL SULF 2.5 MG/0.5ML(0.5%) NEB SOLN NEB SCH ×3 (07:19→18:25)
[2018-03-14] MEDS: Ensure Enlive Strawberry 8oz Bottle PO SCH ×3 (07:52→18:46)
[2018-03-14 07:56] LABS: Band Neutrophils % (manual) 2; Lymphocytes % (manual) 1 (10.0-50.0); Monocytes % (manual) 5 (0-12)
[2018-03-14 08:00] VITALS: BP 109/61
[2018-03-14] MEDS: PANTOPRAZOLE 40 MG TAB PO SCH (10:00)
[2018-03-14] MEDS: methylPREDNISolone SOD SUCC 40 MG/ML VL IV SCH ×2 (10:00→23:24)
[2018-03-14] MEDS: MEGESTROL ACET 400MG/10ML ORAL SUSP GT SCH ×2 (10:00→23:24)
[2018-03-14] MEDS: ENOXAPARIN SOD 40 MG/0.4 ML SYRINGE SC SCH (10:00)
[2018-03-14] MEDS: FLUCONAZOLE 200MG/100ML 100 ML IV SCH (10:27)
[2018-03-14] MEDS ORDERED: EPINEPHrine HCL 1 MG/1 ML AMP ONE (11:41)
[2018-03-14] MEDS ORDERED: SODIUM CHLORIDE LOCK 20 ML ONE (11:41)
[2018-03-14] MEDS ORDERED: LIDOCAINE 2% (LOCAL ANESTH.) PF 5ml SDV ONE ×2 (11:42→11:43)
[2018-03-14] MEDS ORDERED: HYDROcodone-ACET 5/325MG TAB PO PRN (12:00)
[2018-03-14 12:18] VITALS: BP 108/70
[2018-03-14] MEDS ORDERED: LIDOCAINE 1% (LOCAL ANESTH.) PF 5ml SDV ONE (12:26)
[2018-03-14] MEDS ORDERED: MIDAZOLAM HCL 1MG/1ML-2 ML VIAL ONE (12:32)
[2018-03-14] MEDS ORDERED: PROPOFOL 10 MG/ML 20 ML IV ONE (12:34)
[2018-03-14] MEDS ORDERED: ALBUTEROL SULF 2.5 MG/0.5ML(0.5%) NEB SOLN NEB ONE ×2 (13:15→13:30)
[2018-03-14] MEDS ORDERED: ONDANSETRON HCL 4 MG/2 ML VIAL IV ONE (13:15)
[2018-03-14] MEDS ORDERED: HYDROmorphone HCL 2 MG/ML VL IV PRN (13:15)
[2018-03-14] MEDS ORDERED: NALOXONE HCL 0.4 MG/ML VIAL IV PRN (13:15)
[2018-03-14 17:00] VITALS: BP 92/72
[2018-03-14 20:06] VITALS: BP 92/72
[2018-03-14 22:00] VITALS: BP 113/70
[2018-03-15] MEDS: IPRATROPIUM BROM 0.5 MG/2.5ML INH SOL NEB SCH ×4 (00:51→18:36)
[2018-03-15] MEDS: ALBUTEROL SULF 2.5 MG/0.5ML(0.5%) NEB SOLN NEB SCH ×4 (00:51→18:36)
[2018-03-15 05:01] VITALS: BP 134/71
[2018-03-15] MEDS: PIPERACILLIN-TAZOB 3.375GM 100 ML IV SCH ×3 (06:02→17:46)
[2018-03-15 06:12] LABS: Hematocrit 39.6 % (41.0-53.0); Hemoglobin 13.1 g/dL (13.5-17.5); Mean Corpuscular Hgb Conc. 33.2 g/dL (32.0-36.0); Mean Corpuscular Volume 87.5 fL (80.0-100.0); Platelet Count (auto) 225 10^3/uL (140-450); Red Blood Cells 4.52 10^6/uL (4.5-5.90); Red Cell Distribution Width 16.6 % (11.8-14.3)
[2018-03-15 06:23] LABS: Basophils % (manual) 0 (0.0-2.0); Blast Cells 0; Eosinophils % (manual) 0 (0-7); Metamyelocytes % 0; Myelocytes % 0; Promyelocytes % 0; Reactive Lymphocytes 0
[2018-03-15 06:32] LABS: BUN/Creatinine Ratio 22.7; Calcium 7.7 mg/dL (8.5-10.1); Potassium 4.9 mmol/L (3.5-5.1)
[2018-03-15 07:08] LABS: Band Neutrophils % (manual) 1; Lymphocytes % (manual) 1 (10.0-50.0); Monocytes % (manual) 1 (0-12)
[2018-03-15] MEDS: BUDESONIDE (INHALATION) 0.5 MG/2 ML NEB NEB SCH ×2 (07:34→18:36)
[2018-03-15] MEDS: Ensure Enlive Strawberry 8oz Bottle PO SCH ×3 (08:23→17:47)
[2018-03-15 09:00] VITALS: BP 133/72
[2018-03-15] MEDS: ENOXAPARIN SOD 40 MG/0.4 ML SYRINGE SC SCH (10:00)
[2018-03-15] MEDS: FLUCONAZOLE 200MG/100ML 100 ML IV SCH (11:04)
[2018-03-15] MEDS: MEGESTROL ACET 400MG/10ML ORAL SUSP GT SCH ×2 (11:06→22:13)
[2018-03-15] MEDS: PANTOPRAZOLE 40 MG TAB PO SCH (11:06)
[2018-03-15] MEDS: methylPREDNISolone SOD SUCC 40 MG/ML VL IV SCH ×2 (11:06→22:13)
[2018-03-15 12:58] VITALS: BP 126/72
[2018-03-15] MEDS: DOCUSATE SOD 100 MG CAP PO PRN (13:38)
[2018-03-15 17:00] VITALS: BP 129/76
[2018-03-15 22:00] VITALS: BP 116/64
[2018-03-16] MEDS: PIPERACILLIN-TAZOB 3.375GM 100 ML IV SCH ×4 (00:36→18:15)
[2018-03-16] MEDS: ALBUTEROL SULF 2.5 MG/0.5ML(0.5%) NEB SOLN NEB SCH ×4 (00:59→19:28)
[2018-03-16] MEDS: IPRATROPIUM BROM 0.5 MG/2.5ML INH SOL NEB SCH ×4 (00:59→19:28)
[2018-03-16 05:28] VITALS: BP 124/70
[2018-03-16] MEDS: BUDESONIDE (INHALATION) 0.5 MG/2 ML NEB NEB SCH ×2 (06:19→19:28)
[2018-03-16] MEDS: Ensure Enlive Strawberry 8oz Bottle PO SCH ×3 (07:59→18:15)
[2018-03-16 09:00] VITALS: BP 115/73
[2018-03-16] MEDS: ENOXAPARIN SOD 40 MG/0.4 ML SYRINGE SC SCH (10:00)
[2018-03-16] MEDS: MEGESTROL ACET 400MG/10ML ORAL SUSP GT SCH ×2 (10:13→21:27)
[2018-03-16] MEDS: FLUCONAZOLE 200MG/100ML 100 ML IV SCH (10:13)
[2018-03-16] MEDS: PANTOPRAZOLE 40 MG TAB PO SCH (10:14)
[2018-03-16] MEDS: methylPREDNISolone SOD SUCC 40 MG/ML VL IV SCH ×2 (10:14→21:27)
[2018-03-16 13:00] VITALS: BP_SYST 120; BP_SYST 91; BP_DIAS 65; BP_DIAS 77
[2018-03-16 16:48] VITALS: BP 121/70
[2018-03-16 16:49] VITALS: BP_SYST 121; BP_DIAS 70; BP_DIAS 76
[2018-03-16 22:00] VITALS: BP 118/69
[2018-03-17] MEDS: PIPERACILLIN-TAZOB 3.375GM 100 ML IV SCH ×2 (00:30→06:02)
[2018-03-17] MEDS: IPRATROPIUM BROM 0.5 MG/2.5ML INH SOL NEB SCH ×4 (00:46→19:18)
[2018-03-17] MEDS: ALBUTEROL SULF 2.5 MG/0.5ML(0.5%) NEB SOLN NEB SCH ×4 (00:47→19:19)
[2018-03-17 05:37] VITALS: BP 119/75
[2018-03-17] MEDS: BUDESONIDE (INHALATION) 0.5 MG/2 ML NEB NEB SCH ×2 (06:23→19:18)
[2018-03-17 09:00] VITALS: BP 119/72
[2018-03-17] MEDS: Ensure Enlive Strawberry 8oz Bottle PO SCH ×3 (09:37→18:44)
[2018-03-17] MEDS: methylPREDNISolone SOD SUCC 40 MG/ML VL IV SCH (09:41)
[2018-03-17] MEDS: PANTOPRAZOLE 40 MG TAB PO SCH (09:41)
[2018-03-17] MEDS: MEGESTROL ACET 400MG/10ML ORAL SUSP GT SCH ×2 (09:41→23:13)
[2018-03-17] MEDS: FLUCONAZOLE 200MG/100ML 100 ML IV SCH (09:41)
[2018-03-17] MEDS: ENOXAPARIN SOD 40 MG/0.4 ML SYRINGE SC SCH (09:42)
[2018-03-17] MEDS ORDERED: HYDROcodone-ACET 5/325MG TAB PO PRN (11:00)
[2018-03-17] MEDS ORDERED: ERTAPENEM SOD INJ 1 GM in SODIUM CHL 0.9% 50 ML IV ONE (11:00)
[2018-03-17 13:00] VITALS: BP 124/77
[2018-03-17 17:50] VITALS: BP 119/76
[2018-03-17 20:19] VITALS: BP 119/76
[2018-03-17 22:00] VITALS: BP 125/74
[2018-03-17] MEDS: predniSONE 20 MG TAB PO SCH (23:13)
[2018-03-18] MEDS: IPRATROPIUM BROM 0.5 MG/2.5ML INH SOL NEB SCH ×5 (00:54→23:45)
[2018-03-18] MEDS: ALBUTEROL SULF 2.5 MG/0.5ML(0.5%) NEB SOLN NEB SCH ×5 (00:55→23:46)
[2018-03-18 05:13] VITALS: BP 107/74
[2018-03-18 05:54] LABS: Hematocrit 39.4 % (41.0-53.0); Hemoglobin 13.1 g/dL (13.5-17.5); Mean Corpuscular Hgb Conc. 33.2 g/dL (32.0-36.0); Mean Corpuscular Volume 87.5 fL (80.0-100.0); Platelet Count (auto) 227 10^3/uL (140-450); Red Blood Cells 4.51 10^6/uL (4.5-5.90); Red Cell Distribution Width 16.6 % (11.8-14.3); White Blood Cell 12.6 10^3/uL (4.4-10.8)
[2018-03-18 05:57] LABS: Basophils % (manual) 0 (0.0-2.0); Blast Cells 0; Eosinophils % (manual) 0 (0-7); Metamyelocytes % 0; Myelocytes % 0; Promyelocytes % 0; Reactive Lymphocytes 0
[2018-03-18] MEDS: BUDESONIDE (INHALATION) 0.5 MG/2 ML NEB NEB SCH ×2 (06:03→18:24)
[2018-03-18 06:22] LABS: Calcium 7.9 mg/dL (8.5-10.1); Magnesium 2.7 mg/dL (1.6-2.6); Potassium 4.8 mmol/L (3.5-5.1)
[2018-03-18 06:41] LABS: Band Neutrophils % (manual) 2; Lymphocytes % (manual) 1 (10.0-50.0); Monocytes % (manual) 3 (0-12)
[2018-03-18 08:00] VITALS: BP 117/65
[2018-03-18 08:51] VITALS: BP 117/65
[2018-03-18] MEDS ORDERED: ERTAPENEM SOD INJ 1 GM in SODIUM CHL 0.9% 50 ML IV SCH (10:00)
[2018-03-18] MEDS: PANTOPRAZOLE 40 MG TAB PO SCH (11:41)
[2018-03-18] MEDS: Ensure Enlive Strawberry 8oz Bottle PO SCH ×3 (11:41→18:25)
[2018-03-18] MEDS: predniSONE 20 MG TAB PO SCH ×2 (11:41→21:42)
[2018-03-18] MEDS: MEGESTROL ACET 400MG/10ML ORAL SUSP GT SCH ×2 (11:41→21:42)
[2018-03-18] MEDS: ENOXAPARIN SOD 40 MG/0.4 ML SYRINGE SC SCH (11:42)
[2018-03-18] MEDS: ERTAPENEM SOD INJ 1 GM in SODIUM CHL 0.9% 50 ML IV SCH (12:15)
[2018-03-18 12:23] VITALS: BP 118/60
[2018-03-18] MEDS ORDERED: PROMETHAZINE W/CODEINE 5 ML ORAL SYRUP PO PRN (12:30)
[2018-03-18] MEDS ORDERED: FLUCONAZOLE 200MG/100ML 100 ML IV ONE (12:30)
[2018-03-18 17:53] VITALS: BP 118/71
[2018-03-18 22:00] VITALS: BP 121/73
[2018-03-19 05:00] VITALS: BP 121/74
[2018-03-19] MEDS: BUDESONIDE (INHALATION) 0.5 MG/2 ML NEB NEB SCH ×2 (05:59→18:05)
[2018-03-19] MEDS: ALBUTEROL SULF 2.5 MG/0.5ML(0.5%) NEB SOLN NEB SCH ×3 (05:59→18:05)
[2018-03-19] MEDS: IPRATROPIUM BROM 0.5 MG/2.5ML INH SOL NEB SCH ×3 (05:59→18:04)
[2018-03-19 06:04] LABS: Hematocrit 39.4 % (41.0-53.0); Hemoglobin 13.1 g/dL (13.5-17.5); Mean Corpuscular Hemoglobin 29.3 pg (28.0-32.0); Mean Corpuscular Hgb Conc. 33.3 g/dL (32.0-36.0); Platelet Count (auto) 224 10^3/uL (140-450); Red Blood Cells 4.48 10^6/uL (4.5-5.90); Red Cell Distribution Width 16.8 % (11.8-14.3); White Blood Cell 12.3 10^3/uL (4.4-10.8)
[2018-03-19 06:12] LABS: Band Neutrophils % (manual) 0; Basophils % (manual) 0 (0.0-2.0); Blast Cells 0; Metamyelocytes % 0; Myelocytes % 0; Promyelocytes % 0; Reactive Lymphocytes 0
[2018-03-19 06:45] LABS: Eosinophils % (manual) 1 (0-7); Lymphocytes % (manual) 6 (10.0-50.0); Monocytes % (manual) 4 (0-12)
[2018-03-19 09:02] VITALS: BP 118/71
[2018-03-19] MEDS: ENOXAPARIN SOD 40 MG/0.4 ML SYRINGE SC SCH (11:02)
[2018-03-19] MEDS: MEGESTROL ACET 400MG/10ML ORAL SUSP GT SCH ×2 (11:02→23:17)
[2018-03-19] MEDS: predniSONE 20 MG TAB PO SCH (11:02)
[2018-03-19] MEDS: PANTOPRAZOLE 40 MG TAB PO SCH (11:02)
[2018-03-19] MEDS: Ensure Enlive Strawberry 8oz Bottle PO SCH ×3 (11:03→17:54)
[2018-03-19] MEDS: FLUCONAZOLE 200MG/100ML 100 ML IV SCH (11:03)
[2018-03-19 12:06] VITALS: BP 109/68
[2018-03-19] MEDS: ERTAPENEM SOD INJ 1 GM in SODIUM CHL 0.9% 50 ML IV SCH (12:22)
[2018-03-19 17:24] VITALS: BP 111/78
[2018-03-19 22:00] VITALS: BP 114/65
[2018-03-20] MEDS: IPRATROPIUM BROM 0.5 MG/2.5ML INH SOL NEB SCH ×3 (00:23→12:01)
[2018-03-20] MEDS: ALBUTEROL SULF 2.5 MG/0.5ML(0.5%) NEB SOLN NEB SCH ×3 (00:23→12:01)
[2018-03-20 05:00] VITALS: BP 118/74
[2018-03-20] MEDS: BUDESONIDE (INHALATION) 0.5 MG/2 ML NEB NEB SCH (06:16)
[2018-03-20 07:41] VITALS: BP 121/67
[2018-03-20] MEDS: Ensure Enlive Strawberry 8oz Bottle PO SCH ×2 (08:00→12:50)
[2018-03-20] MEDS ORDERED: predniSONE 20 MG TAB PO SCH (10:00)
[2018-03-20 10:05] LABS: Hematocrit 40.5 % (41.0-53.0); Hemoglobin 13.2 g/dL (13.5-17.5); Mean Corpuscular Hemoglobin 28.7 pg (28.0-32.0); Mean Corpuscular Hgb Conc. 32.6 g/dL (32.0-36.0); Mean Corpuscular Volume 88.1 fL (80.0-100.0); Platelet Count (auto) 226 10^3/uL (140-450); Red Cell Distribution Width 16.8 % (11.8-14.3); White Blood Cell 13.5 10^3/uL (4.4-10.8)
[2018-03-20 10:27] LABS: Basophils % (manual) 0 (0.0-2.0); Blast Cells 0; Eosinophils % (manual) 0 (0-7); Promyelocytes % 0; Reactive Lymphocytes 0
[2018-03-20] MEDS: PANTOPRAZOLE 40 MG TAB PO SCH (10:39)
[2018-03-20] MEDS: MEGESTROL ACET 400MG/10ML ORAL SUSP GT SCH (10:39)
[2018-03-20] MEDS: FLUCONAZOLE 200MG/100ML 100 ML IV SCH (10:39)
[2018-03-20] MEDS: ENOXAPARIN SOD 40 MG/0.4 ML SYRINGE SC SCH (10:40)
[2018-03-20 11:44] LABS: Band Neutrophils % (manual) 2; Lymphocytes % (manual) 5 (10.0-50.0); Metamyelocytes % 4; Monocytes % (manual) 1 (0-12); Myelocytes % 1
[2018-03-20 11:56] VITALS: BP 120/66
[2018-03-20] MEDS: ERTAPENEM SOD INJ 1 GM in SODIUM CHL 0.9% 50 ML IV SCH (12:49)
== END 2018-03-20 13:42 | disposition home health service (06) | DRG 720 ==
LOC: EDBD 17:33 → ER 17:40 → OVERFLOW 17:41 → EAST 22:49
PROVIDERS: ADMIT Nurse Practitioner; ATTEND Internal Medicine
PROC: 0BC38ZZ Extirpation of Matter from Right Main Bronchus, Via Natural or Artificial Opening Endoscopic (ICD-10-PCS; 2018-03-14)
PROC: 0BC78ZZ Extirpation of Matter from Left Main Bronchus, Via Natural or Artificial Opening Endoscopic (ICD-10-PCS; 2018-03-14)
PROC: 0BCB8ZZ Extirpation of Matter from Left Lower Lobe Bronchus, Via Natural or Artificial Opening Endoscopic (ICD-10-PCS; 2018-03-14)
PROC: 0B968ZZ Drainage of Right Lower Lobe Bronchus, Via Natural or Artificial Opening Endoscopic (ICD-10-PCS; 2018-03-14)
PROC: 0B958ZZ Drainage of Right Middle Lobe Bronchus, Via Natural or Artificial Opening Endoscopic (ICD-10-PCS; 2018-03-14)
PROC: 0BC98ZZ Extirpation of Matter from Lingula Bronchus, Via Natural or Artificial Opening Endoscopic (ICD-10-PCS; principal; 2018-03-14 12:19)
DX: A41.9 Sepsis, unspecified organism (principal); J96.21 Acute and chronic respiratory failure with hypoxia; J15.6 Pneumonia due to other Gram-negative bacteria; E44.0 Moderate protein-calorie malnutrition; J44.0 Chronic obstructive pulmonary disease with (acute) lower respiratory infection; J44.1 Chronic obstructive pulmonary disease with (acute) exacerbation; E87.1 Hypo-osmolality and hyponatremia; N18.2 Chronic kidney disease, stage 2 (mild); F41.9 Anxiety disorder, unspecified; I12.9 Hypertensive chronic kidney disease with stage 1 through stage 4 chronic kidney disease, or unspecified chronic kidney disease; J39.8 Other specified diseases of upper respiratory tract; J98.09 Other diseases of bronchus, not elsewhere classified; J98.11 Atelectasis; T38.0X5A Adverse effect of glucocorticoids and synthetic analogues, initial encounter; Z82.49 Family history of ischemic heart disease and other diseases of the circulatory system; Z87.891 Personal history of nicotine dependence; Z68.22 Body mass index [BMI] 22.0-22.9, adult
CPT/HCPCS: 31622; 31645; 36415; 36600; 71045; 71250; 80048; 80053; 81001; 82805; 82962; 83735; 84132; 84484; 85007; 85025; 85027; 85379; 85610; 87070; 87075; 87076; 87077; 87081; 87186; 87205; 93005; 94640; 94667; 94668; 94761; 96365; 96375; J0171; J0696; J1335; J1450; J1956; J2001; J2250; J2543; J2704